=== PATIENT | female | born 1960 | race Caucasian/White ===

== ENCOUNTER 2016-12-15 18:12 | Emergency (ER) | payer MEDICAID ==
[2016-12-15] MEDS ORDERED: ALBUTEROL/IPRATROPIUM 1 VIAL SOL ONE (18:20)
[2016-12-15] MEDS ORDERED: ALBUTEROL/IPRATROPIUM 1 VIAL SOL INH ONE (18:25)
[2016-12-15 18:47] VITALS: TEMP 100.2
[2016-12-15] MEDS ORDERED: SOLUMEDROL 125 MG/2 ML 125 MG/2 ML PDS IV ONE (18:49)
[2016-12-15] MEDS ORDERED: SOLUMEDROL 125 MG/2 ML 125 MG/2 ML PDS ONE (18:49)
[2016-12-15 18:53] LABS: HEMATOCRIT 33 % (35-47); MEAN CORPUSCULAR HGB CONC 32.7 gm/dl (32.0-36.0); MEAN CORPUSCULAR VOLUME 93 fL (81-99)
[2016-12-15] MEDS ORDERED: SODIUM CHLORIDE 0.9% FLUSH 10 ML SOL IV PRN (19:20)
[2016-12-15 19:33] VITALS: RESP 23; O2SAT 94
[2016-12-15 19:35] LABS: ABG PH 7.4 (7.35-7.45)
[2016-12-15] MEDS ORDERED: AZITHROMYCIN 250 MG TAB PO ONE (19:44)
[2016-12-15 19:45] LABS: ANISOCYTOSIS SLIGHT; BASOPHILS % (MANUAL) 0 % (0-3); EOSINOPHILS % (MANUAL) 0 % (0-9); LYMPHOCYTES % (MANUAL) 24 % (10-50)
[2016-12-15] MEDS ORDERED: AZITHROMYCIN 250 MG TAB ONE (20:02)
[2016-12-15 21:59] VITALS: BP 154/84; PULSE 79
== END 2016-12-15 21:25 | disposition home or self-care (01) | DRG 192 ==
LOC: ED 18:12
DX: J44.1 Chronic obstructive pulmonary disease with (acute) exacerbation (principal)
CPT/HCPCS: 36415; 36600; 71010; 82803; 83880; 85007; 85027; 87040; 93005; 96374; 99284; 99285; J2930; J7620